=== PATIENT | female | born 1960 | race Caucasian/White ===

== ENCOUNTER → 2017-06-20 | Outpatient (CLI) | payer BC ==
[~2017-06-20] MED LIST: ATORVASTATIN CA20 MG PO; CITALOPRAM HBR20 MG PO; CLONAZEPAM0.5 MG PO; ISOPTO CARPINE15 ML OP; JANUMET 50-1,01 EACH PO; LYRICA75 MG PO; OMEPRAZOLE40 MG PO; RANITIDINE HCL300 M1 PO
--- NOTE | 2017-06-20 19:04 | Diagnostic Imaging Report ---
PROCEDURE:X-RAY MODIFIED BARIUM SWALLOW COMPARISON:None. INDICATIONS:Dysphagia. DISCUSSION:Fluoroscopic examination was performed in conjunction with speech pathology, during swallowing of a variety of thin and thick liquid consistencies. Examination showed premature spillage to the vallecula with all consistencies and premature spillage to the piriform sinus with thin liquids only. Laryngeal penetration was noted with thin liquids to the level of the vocal cords, as well as penetration with nectar thick liquids, thin, pure and thick pure. Overt and silent ritesh aspiration of thin liquids was noted during and after the swallow. Mild vallecula, piriform sinus, pharyngeal wall residue was noted after swallows of all consistencies. Moderate base of tongue residue was noted after swallows of all consistencies. CONCLUSION:Moderate pharyngeal dysphagia with overt and silent ritesh aspiration of thin liquids as well as laryngeal penetration. Please see the report from speech pathology for complete details. Efraín Perez M.D. Dictated by: Efraín Perez M.D. on 06/20/2017 at 19:06 Electronically approved by: Efraín Perez M.D. on 06/20/2017 at 19:06
== END ==
LOC: DX 11:52
PROVIDERS: ATTEND Otolaryngology
DX: R13.10 Dysphagia, unspecified (principal); C32.9 Malignant neoplasm of larynx, unspecified
CPT/HCPCS: 74230

== ENCOUNTER 2017-08-01 10:16 | Outpatient (RCR) | payer BC ==
--- NOTE | 2017-08-01 12:44 | Diagnostic Imaging Report ---
PROCEDURE:X-RAY MODIFIED BARIUM SWALLOW COMPARISON:None. INDICATIONS:Not provided. DISCUSSION:Fluoroscopic examination was performed in conjunction with speech pathology, during swallowing of a variety of thin and thick liquid consistencies. CONCLUSION:Laryngeal penetration and trace aspiration were noted upon administration of thin liquid and juice consistencies. Please see the report from speech pathology for complete details. Dictated by: Todd Carbajal M.D. on 08/01/2017 at 12:46 Electronically approved by: Todd Carbajal M.D. on 08/01/2017 at 12:46
== END 2017-08-02 ==
LOC: RAD 10:16
PROVIDERS: ATTEND Otolaryngology
DX: R13.13 Dysphagia, pharyngeal phase (principal); Z85.21 Personal history of malignant neoplasm of larynx
CPT/HCPCS: 74230

== ENCOUNTER 2017-08-06 13:42 | Outpatient (RCR) | payer BC | END 2017-09-01 | LOC: RAD 13:42 | PROVIDERS: ATTEND Otolaryngology | DX: R13.10 Dysphagia, unspecified (principal) ==

== ENCOUNTER 2017-08-24 13:37 | Outpatient (RCR) | payer BC | END 2017-09-01 | LOC: ST 13:37 | PROVIDERS: ATTEND Otolaryngology | DX: R13.13 Dysphagia, pharyngeal phase (principal); Z85.21 Personal history of malignant neoplasm of larynx ==

== ENCOUNTER 2017-09-03 13:46 | Outpatient (RCR) | payer BC | END 2017-10-02 | LOC: ST 13:46 | PROVIDERS: ATTEND Otolaryngology | DX: R13.13 Dysphagia, pharyngeal phase (principal); Z85.21 Personal history of malignant neoplasm of larynx ==

== ENCOUNTER → 2017-10-05 | Outpatient (CLI) | payer BC ==
--- NOTE | 2017-10-05 14:04 | Diagnostic Imaging Report ---
PROCEDURE:X-RAY MODIFIED BARIUM SWALLOW COMPARISON:08/01/2017 INDICATIONS:Not provided. DISCUSSION:Fluoroscopic examination was performed in conjunction with speech pathology, during swallowing of a variety of thin and thick liquid consistencies. Trace penetration was observed with thin liquids and thick puree textures. Trace silent aspiration of thin liquids was observed only when patient tilts head back or uses a straw. No aspiration was observed when patient takes small cup sips. CONCLUSION: Trace penetration was observed with thin liquids and thick puree textures. Trace silent aspiration of thin liquids was observed only when patient tilts head back or uses a straw. No aspiration of thin liquids was observed when patient takes small cup sips. Please see the report from speech pathology for complete details. Dictated by: Ede Jones M.D. on 10/05/2017 at 14:09 Electronically approved by: Ede Jones M.D. on 10/05/2017 at 14:09
== END ==
LOC: DX 11:52
PROVIDERS: ATTEND Otolaryngology
DX: R13.13 Dysphagia, pharyngeal phase (principal); Z85.21 Personal history of malignant neoplasm of larynx
CPT/HCPCS: 74230; G8996; G8997; G8998

== ENCOUNTER → 2017-10-24 | Outpatient (CLI) | payer BC | LOC: SLEEP 19:55 | PROVIDERS: ATTEND Otolaryngology | DX: G47.33 Obstructive sleep apnea (adult) (pediatric) (principal) ==